=== PATIENT | female | born 1965 | race Two or more races ===

== ENCOUNTER 2017-03-04 18:17 | Emergency (ER) | payer OTHER ==
[2017-03-04 22:57] VITALS: BP 110/87
== END 2017-03-04 22:57 | disposition home or self-care (01) ==
LOC: ED 18:17
DX: G44.209 Tension-type headache, unspecified, not intractable (principal); N10 Acute pyelonephritis; Z79.891 Long term (current) use of opiate analgesic; Z79.899 Other long term (current) drug therapy
CPT/HCPCS: J0696; J1200; J1885; J2765